=== PATIENT | male | born 1985 | race Caucasian/White ===

== ENCOUNTER 2024-09-23 02:03 | Emergency (ER) | payer OTHER, SELFPAY ==
--- NOTE | 2024-09-23 02:11 | ED.GENADULT ---
HPI - General Adult General Time Seen by Provider: 02:11 <Aleyda Soler MD - Last Filed: 09/24/24 02:43> Date Seen: 09/23/24 <Aleyda Soler MD - Last Filed: 09/24/24 02:43> Chief complaint: Abdominal Pain <Aleyda Soler MD - Last Filed: 09/24/24 02:43> Stated complaint: stomach pain <Aleyda Soler MD - Last Filed: 09/24/24 02:43> Time Seen by Provider: 09/23/24 02:08 <Aleyda Soler MD - Last Filed: 09/24/24 02:43> Source: patient and RN notes reviewed <Aleyda Soler MD - Last Filed: 09/24/24 02:43> Mode of arrival: ambulatory <Aleyda Soler MD - Last Filed: 09/24/24 02:43> Limitations: no limitations <Aleyda Soler MD - Last Filed: 09/24/24 02:43> History of Present Illness HPI narrative: This 39-year-old male is coming in with abdominal pain. Started to abruptly about 10 30 tonight. It is in his right side, radiates toward the right groin. He also feels it in his right back. He has had some nausea, felt sweaty but no fevers, no vomiting. He notes no diarrhea or constipation. Since this is started he feels like he has to urinate but can not go much. He has no history kidney stones, no prior history of abdominal surgery. He is not aware of family members with any kidney stones. <Aleyda Soler MD - Last Filed: 09/24/24 02:43> Related Data Home medications: Previous Rx's ?Medication ?Instructions ?Recorded tamsulosin 0.4 mg capsule (Flomax) 0.4 mg PO DAILY PRN Kidney stones 09/23/24 #10 caps <Aleyda Soler MD - Last Filed: 09/24/24 02:43> Allergies/adverse reactions: Allergies Allergy/AdvReac Type Severity Reaction Status Date / Time No Known Drug Allergies Allergy Verified 09/23/24 02:36 <Aleyda Soler MD - Last Filed: 09/24/24 02:43> Review of Systems Narrative: As per HPI. <Aleyda Soler MD - Last Filed: 09/24/24 02:43> [facility] Medical History: Medical History (Updated 09/23/24 @ 03:39 by Harriet Varela MD) No significant past medical history <Aleyda Soler MD - Last Filed: 09/24/24 02:43> Surgical History: Surgical History (Updated 09/23/24 @ 02:39 by Roshan Beck RN) No significant past surgical history <Aleyda Soler MD - Last Filed: 09/24/24 02:43> Social History: Social History Smoking Status: Never smoker Second hand tobacco smoke exposure: No How often do you have a drink containing alcohol: never AUDIT-C Alcohol total score: 0 Non-prescribed substance use: denies use <Aleyda Soler MD - Last Filed: 09/24/24 02:43> Exam Const: Vital Signs, click to edit/add: Vital Signs - 24 hr 09/23/24 03:44 09/23/24 03:44 09/23/24 03:50 Temperature 98.0 F 98.0 F 98.0 F Pulse Rate [Right Pulse Oximeter] 71 71 Respiratory Rate 18 18 Blood Pressure [Ri ght Upper Arm] 154/74 H 154/74 H Pulse Oximetry 99 Oxygen Delivery Me thod Room Air This 39-year-old male is alert, interactive, no apparent distress. Did see him ambulate to and from the bathroom, gait normal. Skin is warm but sweaty, no rash. Sclera clear. Speaking in complete sentences. Lungs are clear, good air entry come to wheeze or crackles. CV regular rate and rhythm, no murmur, normal S1-S2. Abdomen is mildly obese but soft, nondistended. He has far right lateral tenderness and some right CVA tenderness. No rebound or guarding, no organomegaly, no masses. <Aleyda Soler MD - Last Filed: 09/24/24 02:43> Vital Signs, click to edit/add: Vital Signs - 24 hr 09/23/24 03:44 09/23/24 03:44 09/23/24 03:50 Temperature 98.0 F 98.0 F 98.0 F Pulse Rate [Right Pulse Oximeter] 71 71 Respiratory Rate 18 18 Blood Pressure [Ri ght Upper Arm] 154/74 H 154/74 H Pulse Oximetry 99 Oxygen Delivery Me thod Room Air <Harriet Varela MD - Last Filed: 09/23/24 03:42> Documenting provider has reviewed patient's vital signs: yes <Aleyda Soler MD - Last Filed: 09/24/24 02:43> Course Course ED Course: This 39-year-old male is presenting with abdominal pain that certainly seems to be consistent with renal colic/kidney stone. Will place an IV, give him some Toradol, Zofran and IV fluids for symptom control. He will have a CT noncontrast. Will get CBC, basic metabolic panel in urinalysis. Other possible etiologies could be atypical presentation of right-sided diverticulitis, appendicitis. CT imaging will certainly help us elucidate any intra-abdominal pathology. <Aleyda Soler MD - Last Filed: 09/24/24 02:43> Reevaluation(s) Time of Reevaluation #1: 02:54 <Aleyda Soler MD - Last Filed: 09/24/24 02:43> Reevaluation #1: Patient is much improved after the Toradol. Have reviewed with him that his white count is normal, he does have some red cells in the urine which could go along with kidney stones. We are awaiting his CT to be done. <Aleyda Soler MD - Last Filed: 09/24/24 02:43> Time of Reevaluation #2: 03:40 <Harriet Varela MD - Last Filed: 09/23/24 03:42> Reevaluation #2: Dr. Varela- counseled patient on CT findings. 2 mm UVJ stone does adequately explain his symptoms. Feeling much better after the Toradol. Will start Flomax 0.4 once daily, 1st dose given here in the ED. Prescription from [facility] for Toradol given as well. Tylenol discussed. Alarm symptoms such as sepsis reviewed as indications to come back to the ED. Written instructions provided, all questions answered. Does not need to return the stone or to strain urine due to the small size. Remainder of labs reassuring. <Harriet Varela MD - Last Filed: 09/23/24 03:42> Vital Signs Vital signs: Initial Vital Signs Temperature 98.0 F 09/23/24 02:26 Temperature Source Temporal Artery Scan 09/23/24 02:26 Vital Signs Temperature 98.0 F 09/23/24 02:26 Temperature 98.0 F 09/23/24 03:50 Pulse Rate 71 09/23/24 03:44 Respiratory Rate 18 09/23/24 03:44 Blood Pressure 154/74 H 09/23/24 03:44 Pulse Oximetry 99 09/23/24 03:44 Oxygen Delivery Method Room Air 09/23/24 03:44 <Aleyda Soler MD - Last Filed: 09/24/24 02:43> Initial Vital Signs Temperature 98.0 F 09/23/24 02:26 Temperature Source Temporal Artery Scan 09/23/24 02:26 Vital Signs Temperature 98.0 F 09/23/24 02:26 Temperature 98.0 F 09/23/24 03:50 Pulse Rate 71 09/23/24 03:44 Respiratory Rate 18 09/23/24 03:44 Blood Pressure 154/74 H 09/23/24 03:44 Pulse Oximetry 99 09/23/24 03:44 Oxygen Delivery Method Room Air 09/23/24 03:44 <Harriet Varela MD - Last Filed: 09/23/24 03:42> Medications Administered Medications: Discontinued Medications Generic Name Dose Route Start Last Admin Trade Name Freq PRN Reason Stop Dose Admin Sodium Chloride 1,000 mls @ 500 mls/hr 09/23/24 02:15 09/23/24 03:51 0.9 % Sodium Chloride 1000 Ml IV 09/23/24 04:14 Infused .Q2H CAITLIN Infusion Ketorolac Tromethamine 15 mg 09/23/24 02:15 09/23/24 02:26 Ketorolac 15 Mg/Ml Inj IVP 09/23/24 02:16 15 mg ONCE ONE Administration Ondansetron HCl 4 mg 09/23/24 02:15 09/23/24 02:26 Ondansetron 2 Mg/Ml Inj IVP 09/23/24 02:16 4 mg ONCE ONE Administration Tamsulosin HCl 0.4 mg 09/23/24 03:37 09/23/24 03:42 Tamsulosin Hcl 0.4 Mg Capsule PO 09/23/24 03:38 0.4 mg ONCE ONE Administration <Aleyda Soler MD - Last Filed: 09/24/24 02:43> Discontinued Medications Generic Name Dose Route Start Last Admin Trade Name Freq PRN Reason Stop Dose Admin Sodium Chloride 1,000 mls @ 500 mls/hr 09/23/24 02:15 09/23/24 03:51 0.9 % Sodium Chloride 1000 Ml IV 09/23/24 04:14 Infused .Q2H CAITLIN Infusion Ketorolac Tromethamine 15 mg 09/23/24 02:15 09/23/24 02:26 Ketorolac 15 Mg/Ml Inj IVP 09/23/24 02:16 15 mg ONCE ONE Administration Ondansetron HCl 4 mg 09/23/24 02:15 09/23/24 02:26 Ondansetron 2 Mg/Ml Inj IVP 09/23/24 02:16 4 mg ONCE ONE Administration Tamsulosin HCl 0.4 mg 09/23/24 03:37 09/23/24 03:42 Tamsulosin Hcl 0.4 Mg Capsule PO 09/23/24 03:38 0.4 mg ONCE ONE Administration <Harriet Varela MD - Last Filed: 09/23/24 03:42> Medical Decision Making Lab Data Lab results reviewed: Yes I reviewed the patient's lab results <Harriet Varela MD - Last Filed: 09/23/24 03:42> Lab results narrative: Labs reassuring. Hematuria as expected with kidney stone. <Harriet Varela MD - Last Filed: 09/23/24 03:42> Labs: Lab Results 09/23/24 Range/Units 02:29 WBC 10.63 (4.50-11.00) K/uL RBC 4.38 (4.30-5.90) m/uL Hgb 13.7 (13.5-17.5) gm/dL Hct 40.5 (37.0-53.0) % MCV 93 (80-100) fL MCH 31 (26-34) pg MCHC 34 (32-36) gm/dL RDW Coeff of Brittany 12.9 (11.5-15.5) % Plt Count 274 (140-440) K/uL Neut % (Auto) 73.5 H (42.0-72.0) % Lymph % (Auto) 18.8 L (20-44) % [place] % (Auto) 4.8 (0.0-11.0) % Eos % (Auto) 1.3 (0.0-7.0) % Baso % (Auto) 1.3 (0.0-3.0) % Neut # (Auto) 7.80 H (1.7-7.0) K/uL Lymph # (Auto) 2.00 (0.90-2.90) K/uL [place] # (Auto) 0.50 (0.00-0.90) K/UL Eos # (Auto) 0.14 (0.00-0.50) K/uL Baso # (Auto) 0.14 (0.00-0.30) K/uL Abs Immat Gran (auto) 0.03 (0.00-0.30) K/uL Imm/Tot Granulo (auto) 0.3 % Sodium 137 (135-149) mmol/L Potassium 4.7 (3.6-5.1) mmol/L Chloride 106 (96-114) mmol/L Carbon Dioxide 22 (20-32) mmol/L Anion Gap 9 (7-15) mEq/L BUN 15 (5-24) mg/dL Creatinine 1.1 (0.5-1.5) mg/dL Estimated Creat Clear 79.75 Estimated GFR 86 ml/min Glucose 143 H (60-115) mg/dL Calcium 9.1 (8.4-10.6) mg/dL Urine Color Yellow (Yellow) Urine Appearance Clear (Clear) Urine pH 5.5 (5.0-8.5) Ur Specific [place] >= 1.030 (1.000-1.030) Urine Protein 1+ A (Negative) Urine Glucose (UA) Negative (Negative) Urine Ketones Negative (Negative) Urine Blood 3+ A (Negative) Urine Nitrite Negative (Negative) Urine Bilirubin Negative (Negative) Urine Urobilinogen 0.2 (0.2-1.0) Ur Leukocyte Esterase Negative (Negative) Urine RBC 5-10 A (0-2) Urine WBC 0-2 (0-5) Ur Squamous Epith Cells None (None-Few) Urine Bacteria None (None) <Aleyda Soler MD - Last Filed: 09/24/24 02:43> Lab Results 09/23/24 Range/Units 02:29 WBC 10.63 (4.50-11.00) K/uL RBC 4.38 (4.30-5.90) m/uL Hgb 13.7 (13.5-17.5) gm/dL Hct 40.5 (37.0-53.0) % MCV 93 (80-100) fL MCH 31 (26-34) pg MCHC 34 (32-36) gm/dL RDW Coeff of Brittany 12.9 (11.5-15.5) % Plt Count 274 (140-440) K/uL Neut % (Auto) 73.5 H (42.0-72.0) % Lymph % (Auto) 18.8 L (20-44) % [place] % (Auto) 4.8 (0.0-11.0) % Eos % (Auto) 1.3 (0.0-7.0) % Baso % (Auto) 1.3 (0.0-3.0) % Neut # (Auto) 7.80 H (1.7-7.0) K/uL Lymph # (Auto) 2.00 (0.90-2.90) K/uL [place] # (Auto) 0.50 (0.00-0.90) K/UL Eos # (Auto) 0.14 (0.00-0.50) K/uL Baso # (Auto) 0.14 (0.00-0.30) K/uL Abs Immat Gran (auto) 0.03 (0.00-0.30) K/uL Imm/Tot Granulo (auto) 0.3 % Sodium 137 (135-149) mmol/L Potassium 4.7 (3.6-5.1) mmol/L Chloride 106 (96-114) mmol/L Carbon Dioxide 22 (20-32) mmol/L Anion Gap 9 (7-15) mEq/L BUN 15 (5-24) mg/dL Creatinine 1.1 (0.5-1.5) mg/dL Estimated Creat Clear 79.75 Estimated GFR 86 ml/min Glucose 143 H (60-115) mg/dL Calcium 9.1 (8.4-10.6) mg/dL Urine Color Yellow (Yellow) Urine Appearance Clear (Clear) Urine pH 5.5 (5.0-8.5) Ur Specific [place] >= 1.030 (1.000-1.030) Urine Protein 1+ A (Negative) Urine Glucose (UA) Negative (Negative) Urine Ketones Negative (Negative) Urine Blood 3+ A (Negative) Urine Nitrite Negative (Negative) Urine Bilirubin Negative (Negative) Urine Urobilinogen 0.2 (0.2-1.0) Ur Leukocyte Esterase Negative (Negative) Urine RBC 5-10 A (0-2) Urine WBC 0-2 (0-5) Ur Squamous Epith Cells None (None-Few) Urine Bacteria None (None) <Harriet Varela MD - Last Filed: 09/23/24 03:42> Imaging Data CT scan - abdomen: Attestation: I have reviewed the pertinent imaging results. <Harriet Varela MD - Last Filed: 09/23/24 03:42> My impression: Small distal ureter stone, no significant obstruction. <Harriet Varela MD - Last Filed: 09/23/24 03:42> Radiologist's impression: IMPRESSION: 1. Within the distal right ureter near the UVJ, there is a 2 mm calcified stone with associated mild upstream periureteral and perinephric inflammatory changes. No substantial hydronephrosis. 2. Likely steatosis. Please note that all CT scans at this facility use dose modulation, iterative reconstruction, and/or weight-based dosing when appropriate to reduce radiation dose to as low as reasonably achievable. Dictated by Peter Plasencia MD @ 09/23/2024 3:21:18 AM <Harriet Varela MD - Last Filed: 09/23/24 03:42> Discharge Plan Discharge Clinical Impression: Right ureteral stone <Aleyda Soler MD - Last Filed: 09/24/24 02:43> Patient Disposition: Home, Self-Care <Aleyda Soler MD - Last Filed: 09/24/24 02:43> Condition: Improved <Aleyda Soler MD - Last Filed: 09/24/24 02:43> Instructions: Ureteral Stones (ED) <Aleyda Soler MD - Last Filed: 09/24/24 02:43> Additional Instructions: As we discussed, you have a 2 mm stone where the ureter meets the bladder. This is the last major turn that the kidney stone must pass and the spot that tends to give people the most difficulty. For pain, I recommend Tylenol 1000 mg every 6 hours I will also prescribe you Toradol which is an anti-inflammatory in said that is very good for kidney stone pain. Do not take additional Aleve or ibuprofen while using the Toradol. The Toradol may be taken up to every 6 hours. The stones typically take a couple of days to pass but may take up to a week. If you have high fevers, severe weakness or mental status changes, come right back to the emergency room. A little bit of blood in the urine is common and not worrisome. Drink lots of fluids and move frequently to help the stone pass. I will also prescribe a medicine called Flomax that you will take once daily. Your given a dose here in the emergency room. I would prefer that you take this at bedtime, severe next dose will be Wednesday night. You may stop the medicine once you feel like you have passed the stone or you have gone 48 hours without symptoms. <Aleyda Soler MD - Last Filed: 09/24/24 02:43> Activity Level: Activity as Tolerated <Aleyda Soler MD - Last Filed: 09/24/24 02:43> Activity as Tolerated <Harriet Varela MD - Last Filed: 09/23/24 03:42> Discharge Diet: Regular <Aleyda Soler MD - Last Filed: 09/24/24 02:43> Regular <Harriet Varela MD - Last Filed: 09/23/24 03:42> Prescriptions: New tamsulosin [Flomax] 0.4 mg capsule 0.4 mg PO DAILY PRN (Reason: Kidney stones) Qty: 10 1RF Rx Instructions: Take once daily at bedtime to help stone pass <Aleyda Soler MD - Last Filed: 09/24/24 02:43> Follow Up/Referrals: Provider,Not a Local [Primary Care Provider, Family Practice] <Aleyda Soler MD - Last Filed: 09/24/24 02:43> Stand Alone Forms: [employer] Info Instructions <Aleyda Soler MD - Last Filed: 09/24/24 02:43>
--- NOTE | 2024-09-23 02:14 | CRLHL7_ITS ---
For Patients: As a result of the Century Cures Act, medical imaging exams and procedure reports are released immediately into your electronic medical record. You may view this report before your referring provider. If you have questions, please contact your health care provider. INDICATION: Right flank pain. TECHNIQUE: CT abdomen and pelvis without contrast. COMPARISON: None. FINDINGS: Lower chest: Unremarkable. Liver: Hepatic parenchyma with mean attenuation of 40 Hounsfield units, potentially suggestive of steatosis. Small right lobe cyst no suspicious masses. Gallbladder and bile ducts: No stones or inflammation. No biliary dilatation. Pancreas: Unremarkable. No mass or inflammation. Spleen: Normal in size. No masses. Adrenal glands: Normal in size. No nodules. Kidneys: Normal in size. Within the distal right ureter near the UVJ, there is a 2 mm calcified stone with associated mild upstream periureteral and perinephric inflammatory changes. No substantial hydronephrosis. Left kidney is unremarkable. GI tract: Colonic diverticuli, but no acute diverticulitis. Normal in caliber. No sign of mass or inflammation. Normal appendix. Vasculature: Atherosclerotic calcifications. Abdominal aorta is normal in caliber. Lymph nodes: No pathologic lymphadenopathy. Peritoneum/Abdominal Wall: Unremarkable. No sign of mass or infiltration. No free air or significant free fluid. Pelvis: Bladder is decompressed. Prostate is unremarkable. Bones: Unremarkable for age. IMPRESSION: 1. Within the distal right ureter near the UVJ, there is a 2 mm calcified stone with associated mild upstream periureteral and perinephric inflammatory changes. No substantial hydronephrosis. 2. Likely steatosis. Please note that all CT scans at this facility use dose modulation, iterative reconstruction, and/or weight-based dosing when appropriate to reduce radiation dose to as low as reasonably achievable. Dictated by Peter Plasencia MD @ 09/23/2024 3:21:18 AM (Electronically Signed)
[2024-09-23 02:26] VITALS: TEMP 36.7
[2024-09-23] MEDS: KETOROLAC 15 MG/ML inj IVP (02:26)
[2024-09-23] MEDS: ONDANSETRON 2 MG/ML inj 4 MG IVP (02:26)
[2024-09-23] MEDS: 0.9 % SODIUM CHLORIDE 1000 ml 1,000 ML 500 ML IV (02:26)
[2024-09-23 02:32] LABS: Appearance Urine Clear (Clear); Basophils Absolute Auto 0.14 K/uL (0.00-0.30); Basophils Percent Auto 1.3 % (0.0-3.0); Bilirubin Urine Negative (Negative); Blood Urine 3+ (Negative); Color Urine Yellow (Yellow); Eosinophils Absolute Auto 0.14 K/uL (0.00-0.50); Eosinophils Percent Auto 1.3 % (0.0-7.0); Glucose Urine Negative (Negative); Hematocrit 40.5 % (37.0-53.0); Hemoglobin* 13.7 gm/dL (13.5-17.5); Immature Granulocytes Abs Auto 0.03 K/uL (0.00-0.30); Immature Granulocytes Pct Auto 0.3 %; Ketones Urine Negative (Negative); Leukocyte Esterase Urine Negative (Negative); Lymphocytes Percent Auto 18.8 % (20-44); Mean Corpuscular HGB Conc 34 gm/dL (32-36); Mean Corpuscular Hemoglobin 31 pg (26-34); Mean Corpuscular Volume 93 fL (80-100); Monocytes Percent Auto 4.8 % (0.0-11.0); Neutrophils Percent Auto 73.5 % (42.0-72.0); Nitrite Urine Negative (Negative); Platelet Count* 274 K/uL (140-440); Protein Urine 1+ (Negative); RDW Coefficient of Variation % 12.9 % (11.5-15.5); Red Blood Count 4.38 m/uL (4.30-5.90); Specific Gravity Urine >= 1.030 (1.000-1.030); Urobilinogen Urine 0.2 (0.2-1.0); WBC Urine 0-2 (0-5); White Blood Count* 10.63 K/uL (4.50-11.00); pH Urine 5.5 (5.0-8.5)
[2024-09-23 02:34] VITALS: BP 185/100; PULSE 76; RESP 18; TEMP 36.7; O2SAT 99; BMI 39.5
[2024-09-23 02:44] LABS: Chloride* 106 mmol/L (96-114); Slide Review Reflex No; Sodium* 137 mmol/L (135-149)
[2024-09-23 02:45] LABS: Potassium* 4.7 mmol/L (3.6-5.1)
[2024-09-23 02:47] LABS: Blood Urea Nitrogen* 15 mg/dL (5-24); Creatinine* 1.1 mg/dL (0.5-1.5); Est. Creatinine Clearance* 79.75; Estimated Glomerular Filt Rate 86 ml/min
--- OUTSIDE RECORDS SUMMARY | 2024-09-23 02:47 | XMS_ITS | Clinical Summary ---
Author Organization [employer] [facility] Address [address] [place] [id number] Care Team Providers Care Financial Foundations Associate Name Role Phone Pcp, No Primary Care Provider Carson Jordan DO Unavailable Unavailable Allergies Active Allergy Reactions Criticality Noted Date Comments Amoxicillin-Pot Clavulanate Hives 08/24/19 25 Medications ciprofloxacin-de xAMETHasone otic suspensionIndica tions:Recurrent acute suppurative otitis media of right ear with spontaneous rupture of tympanic membrane Place 4 Drops into right ear two times daily for 7 days. 6 mL 5 08/31/19 25 cefdinir 300 mg capsuleIndicatio ns:Non-recurrent acute suppurative otitis media of left ear without spontaneous rupture of tympanic membrane,Recurre nt acute suppurative otitis media of right ear with spontaneous rupture of tympanic membrane Take 1 Capsule (300 mg) by mouth two times daily for 5 days. 10 Capsule 5 08/29/19 25 Active Problems Problem Noted Date Diagnosed Date Regular astigmatism 03/14/2009 Encounters Date Type Department Care Team Description 08/23/2024 7:20 PM CDT Office Visit [facility] [address] [place], [place] [address] Provider, Exsv Sonya Maza NP Ear Problem (Right ear pain) 08/23/2024 Travel from Last 3 Months Immunizations Immunization Administration Dates Next Due COVID-19 vaccine (Care[employer] NTech 30mcg/0.3mL) [place] 07/26/2020,07/05/2020 Influenza, IIV3 (Age >=3 years) 01/17/2014,01/20 Influenza, IIV4 06/14/2017,01/04/2016,01/25/2013 MMR 08/16/1989 Tdap 03/02/2016,07/23/2003 Social History Tobacco Use Types Packs/Day Years Used Date Smoking Tobacco: Every Day Cigarettes Smokeless Tobacco: Never Tobacco Cessation:Ready to Q uit: Not Asked; Counseling Given: Not Answered Alcohol Use Standard Drinks/Week Comments Yes 0 (1 standard drink = 0.6 oz pur e alcohol) rarely PHQ-2 Answer Date Recorded PHQ-2 TOTAL SCORE 0 09/24/2020 Financial Resource Strain Answer Date R ecorded Difficulty of Paying Living Expenses Not on file 04/05/2021 Difficulty of Paying Living Expenses Not on file 04/05/2021 Sex and Gender Information Value Date Recorded Sex Assigned at Not on file Legal Sex Male 5:26 AM [employer]AST ST[employer]ER Gender Identity Not on file Sexual Orientation Not on file Obstetrics History Last Filed Vital Signs Vital Sign Reading Time Taken Comments Blood Pressure 142/76 08/23/2024 7:15 PM CDT Pulse 76 08/23/2024 7:15 PM CDT Temperature 36.8 C (98.3 F) 08/23/2024 7:15 PM CDT Respiratory Rate 16 08/23/2024 7:15 PM CDT Oxygen Saturation 98% 08/23/2024 7:15 PM CDT Inhaled Oxygen Concentration - - Weight 107.3 kg (236 lb 9.6 oz) 09/24/2020 5:29 PM CDT Height 170.2 cm (5' 7) 09/24/2020 5:29 PM CDT Body Mass Index 37.06 09/24/2020 5:29 PM CDT Plan of Treatment Health Maintenance Due Date Last Done Comments HIV for age 15-65 1998 Hepatitis C screening for ag e 18-79 2001 Hepatitis B series for 19+ ( 1 of 3 - 19+ 3-dose series) 2002 Pneumococcal series for age 6-49 (1 of 2 - PCV) 2002 Lipids for age 35-44 03/10/2021 03/10/2016 BMI (ht and wt on same day) for age 18+ 09/24/2021 09/24/2020, 06/16/2018, 07/15/2017, Additional history exists Depression screening for age 12+ 09/24/2021 09/24/2020, 06/14/2017, 03/02/2016 COVID-19 vaccine series ( season) 2023 03/02/2021, 07/26/2020, 07/05/2020 Influenza Vaccine (Season Ended) 2024 06/14/2017, 01/04/2016, 01/17/2014, Additional history exists Tetanus booster 03/02/2026 03/02/2016, 07/23/2003 Tdap Completed 03/02/2016, 07/23/2003 Procedures Procedure Name Priority Date/Time Associated Diagnosis Comments LIPID PANEL W REFLEX MEASURED LDL Routine 03/10/2016 7:48 AM YEAST ST[employer]ER Routine medical exam from Last 3 Months or Most Recently Relevant to Health Maintenance Results * (ABNORMAL) LIPID PANEL W REFLEX MEASURED LDL (03/10/2016 7:48 AM YEAST STACKER) CHOLESTEROL,TOTAL 220(H) 100 - 199 mg/dL 03/10/2016 4:17 PM YEAST STACKER [facility] TRIGLYCERIDES 159(H) <150 mg/dL 03/10/2016 4:17 PM YEAST STACKER [facility] HDL CHOLESTEROL 36(L) >40 mg/dL 6 4:17 PM YEAST ST[employer]ER [facility] NON-HDL CHOLESTEROL 184(H) <145 mg/dl 03/10/2016 4:17 PM YEAST ST[employer]ER [facility] CHOL/HDL RATIO 6.11(H) <4.50 03/10/2016 4:17 PM YEAST ST[employer]ER [facility] LDL CHOLESTEROL 152(H) <=130 mg/dL 03/10/2016 4:17 PM YEAST ST[employer]ER [facility] PATIENT STATUS NOT GIVEN 03/10/2016 4:17 PM YEAST ST[employer]ER [facility] Blood BLOOD SPECIMEN / Unknown Butterfly / Unknown 03/10/2016 7:48 AM YEAST STACKER 03/10/2016 8:57 AM YEAST STACKER Carson Stewart DO CHEMISTRY Final Result [facility] [address] [place] [address], [place] from Last 3 Months or Most Recently Relevant to Health Maintenance Insurance [facility] Care Teams Financial Foundations Associate Relationship Specialty Start Date End Date Pcp, No . PCP - General 12/27/22 Carson Stewart DO . Family Practice 12/27/22
[2024-09-23 02:48] LABS: Anion Gap 9 mEq/L (7-15); Calcium* 9.1 mg/dL (8.4-10.6); Carbon Dioxide* 22 mmol/L (20-32); Glucose* 143 mg/dL (60-115)
[2024-09-23] MEDS: TAMSULOSIN HCL 0.4 MG CAPSULE PO (03:42)
[2024-09-23 03:44] VITALS: BP 154/74; PULSE 71; RESP 18; TEMP 36.7; O2SAT 99
[2024-09-23 03:50] VITALS: TEMP 36.7
--- NOTE | 2024-09-23 14:22 | ED.NURSE ---
Pt called stating his rx was not sent to [facility]. I confirmed this was not transmitted and then called rx for flomax to [facility].
== END 2024-09-23 03:51 | disposition home or self-care (01) ==
PROVIDERS: Family Medicine; Emergency Provider Family Medicine
DX: N20.1 Calculus of ureter (principal)
CPT/HCPCS: 36415; 74176; 80048; 81001; 85025; 96374; 96375; 99284; A9270; J1885; J2405; J7030